=== PATIENT | female | born 1945 | race Caucasian/White ===

== ENCOUNTER 2017-12-15 07:55 | Inpatient (IN) | payer MEDICARE, BC ==
[~2017-12-15] VITALS: Ht 167.6 cm; Wt 71.8 kg
[~2017-12-15 07:55] MED LIST: ALEN35TA6 PO; AMLO10TA2 PO; AMLO5TAB2 PO; ASPI-630 PO; ASPI81TA44 PO; CHOL10002 PO; CHOL10003 PO; CLON0.5T3 PO; CLON0.5T3 SL; CRESTOR10 MG PO; HYDR7.5S PO; NITR0.4T SL; OMEP40CA2 PO; POTA8TAB PO
[2017-12-15 08:38] VITALS: BP 147/80
[2017-12-15] MEDS ORDERED: ONDANSETRON ODT 4 MG TAB.RAPDIS PO PRN (09:15)
[2017-12-15 09:16] LABS: INFLUENZA A PATIENT NEGATIVE (NEGATIVE); INFLUENZA B PATIENT NEGATIVE (NEGATIVE)
[2017-12-15 09:25] LABS: BASO % 0 % (0-3); EOS # 0.1 x10^3/uL (0.0-0.7); EOS % 1 % (0-3); HEMATOCRIT 44.2 % (36.0-47.0); HEMOGLOBIN 14.8 g/dL (12.0-15.5); LYMPH # 0.3 x10^3/uL (1.0-4.8); LYMPH % 2 % (24-48); MEAN CORPUSCULAR HEMOGLOBIN 31 pg (25-35); MEAN CORPUSCULAR HGB CONC 34 g/dL (31-37); MEAN CORPUSCULAR VOLUME 92 fL (79-100); MONO # 0.4 x10^3/uL (0.0-1.1); MONO % 3 % (0-9); NEUT # 12.4 x10^3uL (1.8-7.7); NEUT % 94 % (31-73); PLATELET COUNT 245 x10^3/uL (140-400); RED BLOOD COUNT 4.79 x10^6/uL (3.50-5.40); RED CELL DISTRIBUTION WIDTH 14.5 % (11.5-14.5); WHITE BLOOD COUNT 13.2 x10^3/uL (4.0-11.0)
[2017-12-15] MEDS: IV NORMAL SALINE 1,000ML 1,000 ML IV SCH ×2 (09:29→18:54)
[2017-12-15] MEDS ORDERED: HYDROCODONE PO PRN (10:00)
[2017-12-15] MEDS ORDERED: clonazePAM 0.5 MG TABLET PO PRN (10:00)
[2017-12-15] MEDS ORDERED: ACETAMINOPHEN PO PRN (10:00)
[2017-12-15] MEDS ORDERED: NITROGLYCERIN SUBLINGUAL 0.4 MG BOTTLE OF 25. SL PRN (10:00)
--- NOTE | 2017-12-15 10:31 | HP ---
ADMIT DATE: 12/15/2017 HISTORY OF PRESENT ILLNESS: A 72-year-old female with a 1-day history of severe nausea, vomiting, severe diarrhea of approximately 20 times in the last 2 hours. The patient became increasingly dehydrated and as a result of this, came to the hospital to be admitted for further evaluation and treatment. She did have an elevated white count and other labs are still pending. She was negative for influenza A or B, but the point is the patient does have severe gastroenteritis to the point where she could not control her diarrhea and became increasingly dehydrated. PAST MEDICAL HISTORY: The patient has had history of heart murmurs, esophageal narrowing. She has had previous history of a colectomy. She has had history of GERD, pneumonia, hypercholesterolemia. FAMILY HISTORY: Positive for hypertension in the mother and coronary artery disease in the father. SOCIAL HISTORY: Denies smoking, alcohol or drug use. HOME MEDICATIONS: Include Fosamax 35 mg weekly, Norvasc 7.5 mg daily, aspirin 81 mg daily, vitamin D3, Klonopin 0.5 q. 8 p.r.n., nitroglycerin p.r.n., potassium 8 mEq daily, hydrocodone p.r.n., Prilosec 40 and Crestor 10. REVIEW OF SYSTEMS: Otherwise, the patient denies any chest pain, may be some mild shortness of breath, no headaches, visual changes. No melena or hematochezia. The patient denies any problems urinating, although she has been prior dry, has been urinating much of late. PHYSICAL EXAMINATION: In any case, GENERAL: This is a very pleasant white female looking quite ill from dehydration. VITAL SIGNS: The patient's blood pressure 140/80, pulse 90, afebrile, respiratory rate 20. HEENT: The patient's head was atraumatic, normocephalic. Eyes: PERRLA without jaundice. Mouth and throat were normal. NECK: Supple, without JVD or thyromegaly. LUNGS: Diminished throughout, but clear. CARDIOVASCULAR: Regular sinus rhythm. ABDOMEN: Soft, diffuse tenderness with definite guarding, but no rebounding. Very active bowel sounds. EXTREMITIES: No clubbing, cyanosis or edema. NEUROLOGIC: The patient was alert and oriented x 3. The patient has had no recent traveling or drink out of well water and so forth. LABORATORY DATA: In any case as noted, white count was elevated at 13,000. The patient will be admitted for further evaluation and treatment. IMPRESSION: Gastroenteritis, dehydration, abdominal discomfort. Other labs are pending at this time. VANESSA ROPER MD DR: ACE/galilea JOB#: [id number] / [id number]
[2017-12-15] MEDS: PANTOPRAZOLE 40 MG TABLET. PO SCH (10:51)
[2017-12-15 10:53] LABS: FECAL OB PT NEGATIVE (NEG)
[2017-12-15 11:31] VITALS: BP 142/76
--- NOTE | 2017-12-15 11:59 | RAD ---
Chest, 2 views, 12/15/2017: History: Shortness of breath, weakness Comparison is made to a study from 01/05/2017. The heart size and pulmonary vascularity are normal. There is mild tortuosity of the aorta. The lungs are hyperexpanded due to emphysema. There is minimal calcific parenchymal scarring laterally in the left midlung. There is mild bibasilar linear scarring or atelectasis. The upper lung anthony are clear. There is no evidence of pleural fluid. Mild spurring is present in the spine. IMPRESSION: 1. Emphysema with parenchymal scarring. 2. Mild bibasilar linear atelectasis and/or scarring.
[2017-12-15 15:15] VITALS: BP 116/79
[2017-12-15 15:40] LABS: BILIRUBIN,URINE NEG (NEG); CLARITY,URINE HAZY; COLOR,URINE YELLOW; GLUCOSE,URINE NEG (NEG); NITRITE,URINE NEG (NEG); UROBILINOGEN,URINE 0.2 mg/dL (0.2 mg/dL)
[2017-12-15 15:41] LABS: BACTERIA,URINE 0 /HPF (0-FEW); SQUAMOUS EPITHELIAL CELL,UR FEW /LPF
[2017-12-15 18:17] VITALS: BP 113/70
[2017-12-15] MEDS: ACETAMINOPHEN 325 MG TABLET PO PRN (18:52)
[2017-12-15] MEDS: ASPIRIN 81 MG TAB.CHEW PO SCH (20:48)
[2017-12-15] MEDS ORDERED: POTASSIUM CHLORIDE 8 MEQ TABLET.ER. PO SCH (21:00)
[2017-12-15 23:00] VITALS: BP 109/69
[2017-12-16] MEDS: IV NORMAL SALINE 1,000ML 1,000 ML IV SCH ×2 (02:27→09:15)
[2017-12-16 05:00] VITALS: BP 124/75
[2017-12-16] MEDS: ACETAMINOPHEN 325 MG TABLET PO PRN (05:54)
[2017-12-16 06:58] LABS: CALCIUM 7.9 mg/dL (8.5-10.1); CREATININE 0.6 mg/dL (0.6-1.0); POTASSIUM 3.3 mmol/L (3.5-5.1)
[2017-12-16 07:00] LABS: BASO # 0.1 x10^3/uL (0.0-0.2); BASO % 1 % (0-3); EOS % 1 % (0-3); HEMOGLOBIN 13.3 g/dL (12.0-15.5); LYMPH # 0.9 x10^3/uL (1.0-4.8); LYMPH % 17 % (24-48); MEAN CORPUSCULAR HEMOGLOBIN 31 pg (25-35); MEAN CORPUSCULAR HGB CONC 33 g/dL (31-37); MEAN CORPUSCULAR VOLUME 93 fL (79-100); MONO # 0.5 x10^3/uL (0.0-1.1); MONO % 9 % (0-9); NEUT # 3.8 x10^3uL (1.8-7.7); NEUT % 72 % (31-73); PLATELET COUNT 188 x10^3/uL (140-400); RED BLOOD COUNT 4.32 x10^6/uL (3.50-5.40); RED CELL DISTRIBUTION WIDTH 14.5 % (11.5-14.5); WHITE BLOOD COUNT 5.3 x10^3/uL (4.0-11.0)
[2017-12-16] MEDS: PANTOPRAZOLE 40 MG TABLET. PO SCH (08:49)
[2017-12-16] MEDS: ASPIRIN 81 MG TAB.CHEW PO SCH (08:49)
[2017-12-16] MEDS ORDERED: amLODIPine BESYLATE 5 MG TABLET PO SCH (09:00)
[2017-12-16] MEDS ORDERED: POTASSIUM CHLORIDE 10 MEQ TABLET.ER. PO SCH (10:30)
[2017-12-16] MEDS ORDERED: POTASSIUM CHLORIDE 8 MEQ TABLET.ER. PO SCH (11:00)
[2017-12-16 11:04] VITALS: BP 120/76
[2017-12-16] MEDS ORDERED: POTA8TAB PO (11:38)
[2017-12-16] MEDS ORDERED: ONDA4TAB12 PO (11:38)
--- NOTE | 2017-12-16 19:02 | DS ---
DATE OF DISCHARGE: 12/16/2017 HOSPITAL COURSE: A 72-year-old female came in with severe diarrhea, dehydration, and hypokalemia. The patient was having several stools a day prior to admission, white count was elevated to 13,000, although influenza negative. The patient's potassium was on the low side. She was supplemented with additional potassium there. Calcium was also low. The patient's urine culture pending. Otherwise, the patient had fluids. She advanced her diet. She made good progress. She was discharged home. See EMRAD. Decreased activity, advance diet as tolerated. IMPRESSION: Gastroenteritis, hypokalemia, dehydration, generalized weakness, and fatigue. VANESSA ROPER MD DR: ACE/galilea JOB#: [id number] / [id number]
== END 2017-12-16 14:30 | disposition home or self-care (01) | DRG 392 ==
LOC: 1 SOUTH 07:55
PROVIDERS: ADMIT Family Medicine; ATTEND Family Medicine
DX: K52.9 Noninfective gastroenteritis and colitis, unspecified (principal); E86.0 Dehydration; E78.00 Pure hypercholesterolemia, unspecified; K21.9 Gastro-esophageal reflux disease without esophagitis; E87.6 Hypokalemia; Z82.49 Family history of ischemic heart disease and other diseases of the circulatory system; Z90.49 Acquired absence of other specified parts of digestive tract; Z87.01 Personal history of pneumonia (recurrent); Z79.82 Long term (current) use of aspirin; Z79.899 Other long term (current) drug therapy
CPT/HCPCS: 36415; 71046; 80048; 81001; 82274; 83605; 85025; 87324; 87804; Q0162; J7030

== ENCOUNTER 2019-08-16 13:06 | Inpatient (IN) | payer MEDICARE, BC ==
[~2019-08-16] VITALS: Ht 153.7 cm; Wt 64.2 kg
[~2019-08-16 13:06] MED LIST changes: +ALEN35TA11 PO; -ALEN35TA6 PO; -AMLO10TA2 PO; +AMLO10TA8 PO; +AMLO5TAB10 PO; -AMLO5TAB2 PO; -ASPI81TA44 PO; +ASPI81TA59 PO; +CLON0.5T11 PO; +CLON0.5T11 SL; -CLON0.5T3 PO; -CLON0.5T3 SL; -NITR0.4T SL; +NITR0.4T24 SL; +ONDA4TAB12 PO
[2019-08-16 13:47] VITALS: BP 172/89
[2019-08-16 14:11] LABS: BASO # 0.1 x10^3/uL (0.0-0.2); BASO % 1 % (0-3); EOS # 0.5 x10^3/uL (0.0-0.7); EOS % 5 % (0-3); HEMATOCRIT 46.9 % (36.0-47.0); HEMOGLOBIN 15.4 g/dL (12.0-15.5); LYMPH % 19 % (24-48); MEAN CORPUSCULAR HEMOGLOBIN 31 pg (25-35); MEAN CORPUSCULAR HGB CONC 33 g/dL (31-37); MEAN CORPUSCULAR VOLUME 96 fL (79-100); MONO # 0.6 x10^3/uL (0.0-1.1); MONO % 6 % (0-9); NEUT # 7.2 x10^3uL (1.8-7.7); NEUT % 69 % (31-73); PLATELET COUNT 286 x10^3/uL (140-400); RED BLOOD COUNT 4.91 x10^6/uL (3.50-5.40); RED CELL DISTRIBUTION WIDTH 13.8 % (11.5-14.5); WHITE BLOOD COUNT 10.4 x10^3/uL (4.0-11.0)
[2019-08-16 14:23] LABS: ALBUMIN/GLOBULIN RATIO 1.1 (1.0-1.7); CALCIUM 9.4 mg/dL (8.5-10.1); CREATININE 0.8 mg/dL (0.6-1.0); GFR 69.9; POTASSIUM 3.7 mmol/L (3.5-5.1); TOTAL BILIRUBIN 0.5 mg/dL (0.2-1.0); TOTAL PROTEIN 7.8 g/dL (6.4-8.2)
[2019-08-16] MEDS ORDERED: FLU VAX QS 2019-20 (36MOS+)/PF 0.5 ML SYRINGE. VAX IM ONE (14:30)
[2019-08-16 14:47] VITALS: BP 143/82
--- NOTE | 2019-08-16 14:54 | RAD ---
EXAM: Chest, 2 views. HISTORY: Cough. Shortness of air. COMPARISON: 12/15/2017 FINDINGS: 2 views the chest are obtained. There is mild elevation of the left hemidiaphragm with left lower lobe infiltrate or scarring. There is also right basilar atelectasis. There are few calcified granulomas. The heart is normal in size. There is no pneumothorax. IMPRESSION: Mild elevation of the left hemidiaphragm with suspected lower lobe infiltrate or scarring. Electronically signed by: Kianna Witt MD (08/16/2019 2:51 PM) [place] [id number]
[2019-08-16] MEDS: guaiFENesin DM 200MG/20MG 10 ML SYRUP PO PRN (15:19)
[2019-08-16] MEDS ORDERED: ALBUTEROL SULFATE 2.5 MG/3 ML NEBU. NEB SCH (16:00)
[2019-08-16 19:32] VITALS: BP 146/91
[2019-08-16] MEDS: IPRATRPIUM/ALBUTEROL 0.5/2.5MG 3 ML NEBU. NEB SCH (20:00)
[2019-08-16] MEDS: ASPIRIN 81 MG TAB.CHEW PO SCH (21:22)
[2019-08-16] MEDS: ATORVASTATIN CALCIUM 20 MG TABLET PO SCH (21:23)
[2019-08-16] MEDS: BENZONATATE 100 MG CAPSULE. PO SCH (21:23)
[2019-08-16] MEDS: methylPREDNISolone SOD SUCC PF 40 MG/ML VIAL. IV SCH (21:24)
[2019-08-16 22:42] VITALS: BP 153/90
[2019-08-16] MEDS: clonazePAM 0.5 MG TABLET PO PRN (22:59)
[2019-08-17] MEDS: guaiFENesin DM 200MG/20MG 10 ML SYRUP PO PRN (02:02)
[2019-08-17] MEDS: IPRATRPIUM/ALBUTEROL 0.5/2.5MG 3 ML NEBU. NEB SCH ×4 (05:39→20:57)
[2019-08-17] MEDS: methylPREDNISolone SOD SUCC PF 40 MG/ML VIAL. IV SCH ×3 (05:42→20:45)
[2019-08-17 05:51] VITALS: BP 129/81
[2019-08-17] MEDS: PANTOPRAZOLE 40 MG TABLET. PO SCH (08:09)
[2019-08-17] MEDS: ASPIRIN 81 MG TAB.CHEW PO SCH ×2 (08:09→20:45)
[2019-08-17] MEDS: amLODIPine BESYLATE 5 MG TABLET PO SCH (08:10)
[2019-08-17] MEDS: BENZONATATE 100 MG CAPSULE. PO SCH ×3 (08:10→20:44)
[2019-08-17] MEDS: CHOLECALCIFEROL (VITAMIN D3) 1,000 UNIT TABLET PO SCH (08:11)
[2019-08-17] MEDS ORDERED: FLU VAX QS 2019-20 (36MOS+)/PF 0.5 ML SYRINGE. VAX IM ONE (09:00)
[2019-08-17 11:00] VITALS: BP 133/83
[2019-08-17] MEDS ORDERED: CALCIUM CARBONATE 500 MG TAB.CHEW PO PRN (13:00)
--- NOTE | 2019-08-17 13:13 | HP ---
ADMIT DATE: 08/16/2019 HISTORY OF PRESENT ILLNESS: The patient is a 74-year-old female patient who was seen yesterday at Dr. Wilhelm's office and was admitted directly as she has been complaining of cough with scanty sputum, chest pain and shortness of breath, has had a chest x-ray, which showed that she has mild elevation in her left hemidiaphragm with suspected lower lobe infiltrate or scarring, was admitted for community-acquired pneumonia. She was started on steroids together with inhalers. PAST MEDICAL HISTORY: Significant for hypertension, hyperlipidemia and anxiety. PAST SURGICAL HISTORY: Significant for bilateral cataract extraction, , colon resection. SOCIAL HISTORY: She lives alone. Her son lives nearby. She is a smoker and drinks alcohol several times per week, wine, tariq, Alexis and Coke. No illicit drugs. She retires and exercises regularly. ALLERGIES: She is allergic to PENICILLIN and LATEX. MEDICATIONS: She is currently on following medications: She is on Crestor 10 mg at bedtime, amlodipine besylate 7.5 mg once a day, aspirin 81 mg once a day, clonazepam 0.5 mg 3 times a day, potassium chloride 8 mEq twice a day, ondansetron 4 mg ODT every 8 hours as needed, omeprazole 40 mg once daily, ergocalciferol, vitamin D 1000 international units once a day and alendronate sodium 35 mg once a week. REVIEW OF SYSTEMS: As per history of present illness. PHYSICAL EXAMINATION: GENERAL: On examining her, she was resting slightly propped up in bed, in no apparent respiratory distress. No pallor, jaundice, cyanosis or thyromegaly. No jugular venous distention. No lower limb edema. VITAL SIGNS: Her heart rate was 82, blood pressure was 172/89, temperature was 97.9, respiratory rate was 18, and oxygen saturation was 92%. HEAD, EYES, EARS, NOSE AND THROAT: Showed normocephalic, atraumatic. NECK: Supple. HEART: Showed normal first and second heart sounds. No gallop or murmur. CHEST: Shows central trachea, equally reduced expansion, reduced air entry, vesicular sounds. I could not really appreciate any crepitation or rhonchi. ABDOMEN: Distended, soft, nontender. NEUROLOGIC: She is awake, alert, responding appropriately. All cranial nerves intact. EXTREMITIES: She moves extremities without difficulty. She ambulates apparently without assistance or assistive devices. LABORATORY DATA: Her lab work on admission showed a white cell count of 10,400, hemoglobin 15, hematocrit 47, MCV 96, platelet count 286,000. Her chemistry showed a serum sodium 141, potassium 3.7, chloride 104, bicarbonate 26, anion gap of 11, BUN 7, creatinine 0.8, estimated GFR was 70 mL per minute. Her glucose was 100, lactic acid was 0.9, calcium was 9.4. Total bilirubin, AST, ALT, alkaline phosphatase were normal. Total protein was 7.8, albumin 4. Her prothrombin time, INR and D-dimer were all normal. Her chest x-ray showed that she has mild elevation of the left hemidiaphragm with left lower lobe infiltrate or scarring. There is also right basilar atelectasis. There are few calcified granulomas. The heart size is normal. There is no pneumothorax. The patient was admitted by Dr. Choco garcia and was started on IV methylprednisolone. Continue with all other medications including the DuoNeb and albuterol as well as guaifenesin. ASSESSMENT: Acute hypoxic respiratory failure, chronic obstructive pulmonary disease exacerbation, community-acquired pneumonia with left lower lobe infiltrate. Other medical problems include hypertension, hyperlipidemia as well as osteoporosis. SHONNA CHENG MD DR: JOCELYNE/galilea JOB#: [id number] / [id number]
[2019-08-17 15:41] VITALS: BP 117/75
[2019-08-17 20:00] VITALS: BP 116/75
[2019-08-17] MEDS: ATORVASTATIN CALCIUM 20 MG TABLET PO SCH (20:44)
[2019-08-17] MEDS: clonazePAM 0.5 MG TABLET PO PRN (20:45)
[2019-08-17] MEDS: LACTOBACILLUS RHAMNOSUS GG 1 CAPSULE. PO SCH (20:45)
--- NOTE | 2019-08-18 01:39 | PN ---
DATE: 08/17/2019 SUBJECTIVE: The patient is resting, slightly propped up in bed, no apparent distress. She continues to have cough, scanty sputum which is yellowish in color. Denied any chills, fever or rigors. Her chest x-ray showed that she has left lower lobe infiltrate, and her oxygen saturations are 93% on 2 liters of oxygen by nasal cannula. PHYSICAL EXAMINATION: GENERAL: When I examined her this morning, she looked well and was clearly in no apparent respiratory distress, pale but no jaundice, cyanosis or thyromegaly. No jugular venous distension. No lower limb edema. VITAL SIGNS: Her heart rate was 84, blood pressure was 129/81, temperature was 97.6, respiratory rate was 20, and oxygen saturation was 93% on 2 liters of oxygen. HEAD, EYES, EARS, NOSE AND THROAT: Showed normocephalic, atraumatic. NECK: Supple. HEART: Showed normal first and second heart sounds. No gallop or murmur. CHEST: Clear to auscultation. She had markedly reduced air entry, but no crepitation or rhonchi. ABDOMEN: Distended, soft, nontender. NEUROLOGIC: She is awake, alert, responding appropriately. All cranial nerves intact. She moves extremities without difficulty. LABORATORY DATA: Has no lab work done this morning. My plan is to add Levaquin 500 mg IV daily. Continue with the Solu-Medrol. I will discontinue the Robitussin-DM and start her on Mucinex 600 mg twice a day, and we will follow her closely and decide on further management accordingly. ASSESSMENT: 1. Acute hypoxic respiratory failure. 2. Chronic obstructive pulmonary disease exacerbation. 3. Community-acquired pneumonia with left lower lobe infiltrate. 4. Hypertension. 5. Hyperlipidemia. 6. Osteoporosis. SHONNA CHENG MD DR: JOCELYNE/galilea JOB#: [id number] / [id number]
[2019-08-18 05:00] VITALS: BP 97/64
[2019-08-18] MEDS: IPRATRPIUM/ALBUTEROL 0.5/2.5MG 3 ML NEBU. NEB SCH ×4 (05:28→20:29)
[2019-08-18] MEDS: methylPREDNISolone SOD SUCC PF 40 MG/ML VIAL. IV SCH ×3 (06:13→20:57)
[2019-08-18 06:18] LABS: BASO % 0 % (0-3); EOS % 0 % (0-3); HEMATOCRIT 42.4 % (36.0-47.0); HEMOGLOBIN 14.1 g/dL (12.0-15.5); LYMPH % 7 % (24-48); MEAN CORPUSCULAR HEMOGLOBIN 31 pg (25-35); MEAN CORPUSCULAR HGB CONC 33 g/dL (31-37); MEAN CORPUSCULAR VOLUME 95 fL (79-100); MONO # 0.6 x10^3/uL (0.0-1.1); MONO % 4 % (0-9); NEUT # 12.8 x10^3uL (1.8-7.7); NEUT % 89 % (31-73); PLATELET COUNT 285 x10^3/uL (140-400); RED BLOOD COUNT 4.48 x10^6/uL (3.50-5.40); RED CELL DISTRIBUTION WIDTH 13.8 % (11.5-14.5); WHITE BLOOD COUNT 14.5 x10^3/uL (4.0-11.0)
[2019-08-18 06:31] LABS: ALBUMIN 3.4 g/dL (3.4-5.0); CALCIUM 8.8 mg/dL (8.5-10.1); CREATININE 0.8 mg/dL (0.6-1.0); GFR 69.9; TOTAL BILIRUBIN 0.3 mg/dL (0.2-1.0); TOTAL PROTEIN 6.9 g/dL (6.4-8.2)
[2019-08-18 06:56] LABS: % BANDS 5 % (0-9); % LYMPHS 12 % (24-48); % MONOS 1 % (0-10); % SEGS 82 % (35-66)
[2019-08-18 06:57] LABS: PLT ESTIMATE ADEQUATE (ADEQUATE); TOXIC GRANULATION PRESENT
[2019-08-18 08:14] VITALS: BP 128/78
[2019-08-18] MEDS: CHOLECALCIFEROL (VITAMIN D3) 1,000 UNIT TABLET PO SCH (08:20)
[2019-08-18] MEDS: amLODIPine BESYLATE 5 MG TABLET PO SCH (08:20)
[2019-08-18] MEDS: ASPIRIN 81 MG TAB.CHEW PO SCH ×2 (08:20→20:58)
[2019-08-18] MEDS: LACTOBACILLUS RHAMNOSUS GG 1 CAPSULE. PO SCH ×2 (08:20→20:58)
[2019-08-18] MEDS: PANTOPRAZOLE 40 MG TABLET. PO SCH (08:20)
[2019-08-18] MEDS: BENZONATATE 100 MG CAPSULE. PO SCH (08:21)
[2019-08-18 11:18] VITALS: BP 115/75
[2019-08-18] MEDS ORDERED: BENZONATATE 100 MG CAPSULE. PO PRN (14:30)
[2019-08-18 15:25] VITALS: BP 133/79
[2019-08-18 19:29] VITALS: BP 124/81
--- NOTE | 2019-08-18 20:35 | PN ---
DATE: SUBJECTIVE: The patient is resting slightly propped up in bed, in no apparent distress. She continued to have cough, is mostly dry. Continued to have some shortness of breath on exertion, but denied any chills, rigors or fever. Denied any chest pain. PHYSICAL EXAMINATION: GENERAL: When I examined her, she looked well and was clearly in no apparent respiratory distress. No pallor, jaundice, cyanosis or thyromegaly. No jugular venous distention. No limb edema. VITAL SIGNS: Her heart rate was 91, blood pressure was 115/75, temperature was 98.1, respiratory rate 20 and oxygen saturation was 93% on 2 liters of oxygen. HEAD, EYES, EARS, NOSE AND THROAT: Showed normocephalic, atraumatic. NECK: Supple. HEART: Showed normal first and second heart sounds. No gallop or murmur. CHEST: Showed central trachea, equally reduced expansion, reduced air entry, vesicular sounds. I could not really appreciate any crepitation or rhonchi. ABDOMEN: Distended, soft, nontender. NEUROLOGIC: She is awake, alert, responding appropriately. All cranial nerves intact. She moves extremities without difficulty. She ambulates without assistance or assistive devices. Her intake was 914, output was recorded. LABORATORY DATA: Her lab work this morning showed a white cell count 14,500. Her hemoglobin was 14, hematocrit 42, MCV 95, and platelet count 285,000 with a manual differential showed 89% polymorphs, 7% lymphocytes and 4% monocytes. Her chemistry showed a serum sodium 142, potassium 4, chloride 106, bicarbonate 26, anion gap of 10, BUN 15, creatinine 0.8, estimated GFR was 70 mL per minute. Her glucose 173, calcium was 8.8. Total bilirubin, AST, ALT, alkaline phosphatase were normal. Total protein was 6.9, albumin 3.4. Her prothrombin time, INR and D-dimer are all normal. So far, her blood cultures are negative. ASSESSMENT: 1. Acute hypoxic respiratory failure. 2. Chronic obstructive pulmonary disease exacerbation. 3. Community-acquired pneumonia with left lower lobe infiltrate. Currently, the patient has had a CT scan of her chest done at [facility] that showed that the patient has no evidence of dominant lung mass. She has linear opacities with scarring versus atelectasis in both lower lungs. She has severe emphysema affecting mostly the upper lobes and she has right upper lobe 12 mm focal ground glass opacity and is indeterminate. Other medical problems include hypertension, hyperlipidemia and osteoporosis. PLAN: To arrange for a 12-lead EKG, 6-minute walk and if she qualifies she will be discharged tomorrow on oral vancomycin, tapering course of steroids and oxygen. SHONNA CHENG MD DR: JOCELYNE/galilea JOB#: [id number] / [id number]
[2019-08-18] MEDS: ATORVASTATIN CALCIUM 20 MG TABLET PO SCH (20:57)
[2019-08-18] MEDS: clonazePAM 0.5 MG TABLET PO PRN (20:58)
[2019-08-18 22:23] VITALS: BP 115/76
[2019-08-19] MEDS: IPRATRPIUM/ALBUTEROL 0.5/2.5MG 3 ML NEBU. NEB SCH ×3 (05:25→16:00)
[2019-08-19] MEDS: methylPREDNISolone SOD SUCC PF 40 MG/ML VIAL. IV SCH ×2 (05:43→14:00)
[2019-08-19 06:12] VITALS: BP 130/79
--- NOTE | 2019-08-19 07:26 | EKG ---
[address] [address] Test Date: 2019-08-18 Test Time: 14:21:30 Pat Name: DEYA LOFTON Department: Room: 103 A Gender: F Paper Testing Supervisor: : 1945 Requested By: SHONNA CHENG Order Number: [id number] Reading MD: Papi Youssef MD Measurements Intervals [place] Rate: 94 P: 10 NC: 152 QRS: -14 QRSD: 64 T: -4 QT: 346 QTc: 438 Interpretive Statements SINUS RHYTHM CONSIDER INFERIOR INFARCT Electronically Signed On 08-29-2019 14:38:31 CDT by Papi Youssef MD
[2019-08-19] MEDS: PANTOPRAZOLE 40 MG TABLET. PO SCH (07:54)
[2019-08-19] MEDS: ASPIRIN 81 MG TAB.CHEW PO SCH (07:54)
[2019-08-19] MEDS: amLODIPine BESYLATE 5 MG TABLET PO SCH (07:55)
[2019-08-19] MEDS: LACTOBACILLUS RHAMNOSUS GG 1 CAPSULE. PO SCH (07:55)
[2019-08-19] MEDS: CHOLECALCIFEROL (VITAMIN D3) 1,000 UNIT TABLET PO SCH (07:55)
[2019-08-19] MEDS: ALBUTEROL SULFATE 2.5 MG/3 ML NEBU. NEB PRN ×2 (10:38→10:46)
[2019-08-19 11:17] VITALS: BP 108/70
[2019-08-19] MEDS ORDERED: PRED-220 PO (14:16)
[2019-08-19] MEDS ORDERED: LEVO500T59 PO (14:16)
[2019-08-19] MEDS ORDERED: IPRA3AMP29 NEB (14:16)
--- NOTE | 2019-08-19 14:52 | DS ---
DATE OF DISCHARGE: HOSPITAL COURSE: The patient is a 74-year-old female patient who was admitted directly from Dr. Wilhelm's office with recurrent bouts of cough with scanty yellowish sputum, chest pain and shortness of breath. Chest x-ray showed that she has mild elevation of left diaphragm with suspected left lower lobe infiltrate scarring. She was admitted with community-acquired pneumonia. We will start her on Levaquin as she is allergic to PENICILLIN. We did also a 6-minute walk and she desaturates down to 85% and she qualified for home oxygen. We did treat her with the steroids in the form of Solu-Medrol 40 mg IV q. 8 hourly as well as bronchodilator. She did generally well. PHYSICAL EXAMINATION: GENERAL: When I saw her today, she looked well and was clearly in no apparent respiratory distress, slightly pale, but no jaundice, cyanosis or thyromegaly. No jugular venous distention. No limb edema. VITAL SIGNS: Her heart rate was 93, blood pressure was 108/70, temperature was 97.6, respiratory rate 20, and oxygen saturation was 93% on 2 liters of oxygen. HEAD, EYES, EARS, NOSE AND THROAT: Showed normocephalic, atraumatic. NECK: Supple. HEART: Showed normal first and second heart sounds. No gallop or murmur. CHEST: Clear to auscultation. No crepitation, rhonchi. ABDOMEN: Slightly distended, soft, nontender. No guarding or rigidity. No organomegaly. All hernial orifice intact. Bowel sounds normal. NEUROLOGIC: She was awake, alert, responding appropriately. All cranial nerves intact. EXTREMITIES: She moves extremities without difficulty. LABORATORY DATA: Showed a white cell count of 14,500, hemoglobin 14, hematocrit 42, MCV 95, and platelet count 285,000. Her chemistry showed a serum sodium 142, potassium 4, chloride 106, bicarbonate 26, anion gap of 10, BUN 15, creatinine 0.8, estimated GFR was 70 mL per minute. Her glucose 173, calcium was 8.8. Total bilirubin, AST, ALT, alkaline phosphatase were normal. Total protein 6.9, albumin 3.4. Her prothrombin time, INR and D-dimer are all within normal range. DISCHARGE MEDICATIONS: She will be discharged home with home health to continue on following: She should continue on levofloxacin 500 mg once a day for 7 more days, prednisone 40 mg in a tapering fashion, ipratropium bromide, albuterol sulfate every 4 hours as needed. She should continue also on amlodipine besylate 7.5 mg daily, alendronate 35 mg once a week, aspirin 81 mg once a day, cholecalciferol 1000 units once a day, clonazepam 0.5 mg 3 times a day, omeprazole 40 mg once a day, ondansetron 4 mg every 8 hours, potassium chloride 8 mEq twice a day and Crestor 10 mg at bedtime. FINAL DISCHARGE DIAGNOSES: 1. Acute hypoxic respiratory failure. 2. Chronic obstructive pulmonary disease exacerbation. 3. Community-acquired pneumonia with left lower lobe infiltrate. She had had a CT scan done at [facility] showing the patient has severe emphysematous changes affecting mostly the upper lobes. 4. She has multiple other medical problems including: A. Hypertension. B. Hyperlipidemia. C. Osteoporosis. She will be discharged home with home health to continue on oral Levaquin, tapering course of steroids and bronchodilator. SHONNA CHENG MD DR: JOCELYNE/galilea JOB#: [id number] / [id number]
[2019-08-23] MEDS ORDERED: ALENDRONATE SODIUM 35 MG TABLET PO SCH (09:00)
== END 2019-08-19 16:36 | disposition home health service (06) | DRG 193 ==
LOC: 1 SOUTH 13:06
PROVIDERS: ADMIT Family Medicine; ATTEND Internal Medicine
DX: J18.9 Pneumonia, unspecified organism (principal); J96.01 Acute respiratory failure with hypoxia; J44.1 Chronic obstructive pulmonary disease with (acute) exacerbation; J44.0 Chronic obstructive pulmonary disease with (acute) lower respiratory infection; I10 Essential (primary) hypertension; F17.200 Nicotine dependence, unspecified, uncomplicated; E78.5 Hyperlipidemia, unspecified; M81.0 Age-related osteoporosis without current pathological fracture; F41.9 Anxiety disorder, unspecified; Z98.42 Cataract extraction status, left eye; Z98.41 Cataract extraction status, right eye; Z88.0 Allergy status to penicillin; Z91.040 Latex allergy status
CPT/HCPCS: 36415; 71046; 80053; 83605; 85007; 85025; 85379; 85610; 87040; 93005; 94618; 94640; J1956; J2920; J7613; J7620

== ENCOUNTER → 2022-01-21 | Outpatient (CLI) | payer MEDICARE, BC ==
[~2022-01-21] MED LIST changes: -ALEN35TA11 PO; +ALEN35TA47 PO; +AMLO-186 PO; +AMLO-187 PO; -AMLO10TA8 PO; -AMLO5TAB10 PO; -CLON0.5T11 PO; -CLON0.5T11 SL; +CLON0.5T4 PO; +CLON0.5T4 SL; +IPRA3AMP29 NEB; +LEVO500T59 PO; -POTA8TAB PO; +POTA8TAB57 PO; +PRED-220 PO
--- NOTE | 2022-01-21 13:26 | RAD ---
DXA BONE DENSITY AXIAL History: Vitamin D deficiency. Comparison: None. TECHNIQUE: Dual energy x-ray absorptiometry of the lumbar spine and right hip was performed. T-score of average bone mineral density based was calculated based on standard deviations above or below the expected young adult normal value. Diagnostic definitions were established by the [employer] z[employer]. FINDINGS: The average bone mineral density associated with L1-L4 is 0.864 g/cm^2, corresponding with a T-score of -2.6. The average total bone mineral density associated with right hip is 0.707 g/cm^2, corresponding with a T-score of -2.0. Refer to the worksheets for full detail. IMPRESSION: 1. Osteoporosis. Average bone mineral density yields a T-score of -2.5 or less. Fracture risk is high . Electronically signed by: Telly Banerjee MD (01/21/2022 1:23 PM) [id number]
== END ==
LOC: DXRAD 10:56
PROVIDERS: ATTEND Family Medicine
DX: M81.8 Other osteoporosis without current pathological fracture (principal); E55.9 Vitamin D deficiency, unspecified
CPT/HCPCS: 77080